=== PATIENT | male | born 1980 | race American Indian/Alaskan Native ===

== ENCOUNTER 2021-03-09 07:18 | Emergency (ER) | payer MEDICAID ==
[2021-03-09 07:26] VITALS: BP 127/77
[2021-03-09 08:53] LABS: Amorphous Crystals,Urine Few; Bacteria,Urine 2+ /HPF (Negative); Bilirubin,Urine NEG (Negative); Blood,Urine SM (Negative); Color,Urine Yellow (Yellow); Triple Phosphate Crystal,Urine 3+; Urobilinogen,Urine < 2.0 mg/dL (<2.0)
[2021-03-09 08:54] LABS: Protein,Urine >500 mg/dL (Negative)
--- NOTE | 2021-03-09 09:02 | Emergency Department Report ---
ED General Adult HPI - General Chief complaint: Urogenital-Male Stated complaint: URINATING CATHERTER ISSUE Time Seen by Provider: 03/09/21 07:25 Source: patient Mode of arrival: Ambulatory Limitations: No Limitations - History of Present Illness Initial comments: 40-year-old -[place] male patient presents with complaints of tingling in his urinary tract x3 days. Patient states 2 months ago he had an indwelling catheter placed while living in [place] for BPH. He reports he is currently following with a urologist. He also states he had a UTI that was treated with antibiotics (patient unsure which antibiotic) 01/20/2021. He denies any hematuria, abdominal pain, flank pain, or fever/chills/sweats. He also reports the urine appears to be cloudy in his cath bag. Patient's next follow-up with his urologist is 03/22/2021. No other past medical history as per patient. NKDA per patient - Related Data Previous Rx's Medication Instructions Recorded Last Taken Type Ciprofloxacin HCl 500 mg PO BID 5 Days #10 tablet 03/09/21 Unknown Rx Allergies Allergy/AdvReac Type Severity Reaction Status Date / Time No Known Allergies Allergy Unverified 03/09/21 07:21 ED Review of Systems ROS: Stated complaint: URINATING CATHERTER ISSUE Other details as noted in HPI Constitutional: denies: chills, fever, malaise Gastrointestinal: denies: abdominal pain Genitourinary: denies: hematuria, testicular pain, testicular mass Skin: denies: rash, lesions, change in color Hematological/Lymphatic: denies: swollen glands ED Past Medical Hx - Past Medical History Additional medical history: PROSTRATE - Medications Home Medications: Home Medications Medication Instructions Recorded Confirmed Last Taken Type Ciprofloxacin HCl 500 mg PO BID 5 Days #10 tablet 03/09/21 Unknown Rx ED Physical Exam - General Limitations: No Limitations General appearance: alert, in no apparent distress - Head Head exam: Present: atraumatic, normocephalic - Eye Eye exam: Present: normal appearance. Absent: scleral icterus - Respiratory Respiratory exam: Absent: respiratory distress - Cardiovascular Cardiovascular Exam: Present: regular rate - GI/Abdominal GI/Abdominal exam: Present: soft. Absent: tenderness - exam: Present: other (Patient deferred exam) - Neurological Exam Neurological exam: Present: alert, oriented X3 - Psychiatric Psychiatric exam: Present: normal affect, normal mood - Skin Skin exam: Present: warm, dry, intact, normal color. Absent: rash ED Course Vital Signs 03/09/21 03/09/21 07:25 07:26 Temperature 98.7 F Pulse Rate 71 Respiratory 20 Rate Blood Pressure 127/77 O2 Sat by Pulse 95 Oximetry ED Medical Decision Making - Lab Data Lab Results 03/09/21 Range/Units 07:39 Urine Color Yellow (Yellow) Urine Turbidity Cloudy (Clear) Urine pH 8.0 H (5.0-7.0) Ur Specific [place] 1.018 (1.003-1.030) Urine Protein >500 (Negative) mg/dL Urine Glucose (UA) Neg (Negative) mg/dL Urine Ketones Neg (Negative) mg/dL Urine Blood Sm (Negative) Urine Nitrite Pos (Negative) Urine Bilirubin Neg (Negative) Urine Urobilinogen < 2.0 (<2.0) mg/dL Ur Leukocyte Esterase Lg (Negative) Urine WBC (Auto) 111.0 H (0.0-6.0) /HPF Urine RBC (Auto) 74.0 (0.0-6.0) /HPF Urine Bacteria (Auto) 2+ (Negative) /HPF Triple Phos Crystals 3+ Amorphous Crystals Few - Medical Decision Making 40-year-old -[place] male patient presents with complaints of tingling in his urinary tract x3 days. Patient states 2 months ago he had an indwelling catheter placed while living in [place] for BPH. He reports he is currently following with a urologist. He also states he had a UTI that was treated with antibiotics (patient unsure which antibiotic) 01/20/2021. He denies any hematuria, abdominal pain, flank pain, or fever/chills/sweats. He also reports the urine appears to be cloudy in his cath bag. Patient's next follow-up with his urologist is 03/22/2021. No other past medical history as per patient. NKDA per patient UA shows infection. Given recent antibiotic use will treat with Cipro for 5 days. Recommend patient follows up with his urologist as scheduled, sooner if needed. Discussed in detail signs symptoms that should prompt immediate return to the ED with patient verbalizes understanding. He is well-appearing, his vitals are normal, he is stable for discharge home. Critical care attestation.: If time is entered above; I have spent that time in minutes in the direct care of this critically ill patient, excluding procedure time. ED Disposition Clinical Impression: UTI (urinary tract infection) due to urinary indwelling catheter Disposition: HOME / SELF CARE / HOMELESS Is pt being admited?: No Condition: Stable Instructions: Urinary Tract Infection, Adult, Infection Prevention in the Home Prescriptions: Ciprofloxacin HCl 500 mg PO BID 5 Days #10 tablet Referrals: PRIMARY CARE, [Primary Care Provider] - 3-5 Days
== END 2021-03-09 09:20 | disposition home or self-care (01) ==
LOC: ED 07:18
DX: T83.511A Infection and inflammatory reaction due to indwelling urethral catheter, initial encounter (principal); Y84.6 Urinary catheterization as the cause of abnormal reaction of the patient, or of later complication, without mention of misadventure at the time of the procedure; Y92.89 Other specified places as the place of occurrence of the external cause
CPT/HCPCS: 81001; 99283